=== PATIENT | female | born 1970 | race Two or more races ===

== ENCOUNTER 2021-01-22 10:03 | Outpatient (CLI) | payer OTHER | END 2021-01-22 10:15 | disposition home or self-care (01) | LOC: SONOGRAMA 10:03 → MAMO-SONO 10:15 → SONOGRAMA 10:15 | PROVIDERS: ATTEND Specialist | DX: N64.59 Other signs and symptoms in breast (principal); N60.12 Diffuse cystic mastopathy of left breast ==

== ENCOUNTER → 2021-03-02 | Outpatient (CLI) | payer OTHER | END | disposition home or self-care (01) | LOC: SONOGRAMA 13:40 | PROVIDERS: ATTEND Surgery | DX: D24.1 Benign neoplasm of right breast (principal); N60.11 Diffuse cystic mastopathy of right breast; N60.12 Diffuse cystic mastopathy of left breast ==

== ENCOUNTER 2021-09-19 14:11 | Outpatient (CLI) | payer OTHER | END 2021-09-19 14:38 | disposition home or self-care (01) | LOC: MAMO-SONO 14:11 | PROVIDERS: ATTEND Specialist | DX: N60.11 Diffuse cystic mastopathy of right breast (principal); N60.12 Diffuse cystic mastopathy of left breast ==

== ENCOUNTER 2021-09-27 12:16 | Outpatient (CLI) | payer OTHER | END 2021-09-27 13:38 | disposition home or self-care (01) | LOC: SONOGRAMA 12:16 | PROVIDERS: ATTEND Surgery | DX: N60.11 Diffuse cystic mastopathy of right breast (principal); N60.12 Diffuse cystic mastopathy of left breast; N64.59 Other signs and symptoms in breast ==

== ENCOUNTER 2022-09-27 10:03 | Outpatient (CLI) | payer OTHER | END 2022-09-27 10:13 | disposition home or self-care (01) | LOC: MAMO-SONO 10:03 | PROVIDERS: ATTEND Surgery | DX: N60.11 Diffuse cystic mastopathy of right breast (principal); N60.12 Diffuse cystic mastopathy of left breast ==

== ENCOUNTER 2023-09-29 13:14 | Outpatient (CLI) | payer OTHER | END 2023-09-29 13:23 | disposition home or self-care (01) | LOC: MAMO-SONO 13:14 | PROVIDERS: ATTEND Surgery | DX: N60.11 Diffuse cystic mastopathy of right breast (principal); N60.12 Diffuse cystic mastopathy of left breast; Z12.31 Encounter for screening mammogram for malignant neoplasm of breast ==